=== PATIENT | male | born 1985 | race Caucasian/White ===

== ENCOUNTER 2019-07-10 08:24 | Emergency (ER) | payer BC ==
--- NOTE | 2019-07-10 09:30 | ER Document Report ---
ED GI/ - General Chief Complaint: Testicular Pain Stated Complaint: TESTICULAR PAIN Time Seen by Provider: 07/10/19 09:00 Notes: CHIEF COMPLAINT: Left testicular pain and swelling HPI: 33-year-old male presenting to the emergency department complaining of left testicular pain and swelling that he noticed yesterday. Has not been straining or lifting heavy equipment. Denies dysuria. Denies penile discharge. Patient states that he noticed a lump at the base of the left testicle yesterday. Not had fever. ROS: See HPI - all other systems were reviewed and are otherwise negative GI: no vomiting, no diarrhea, no abdominal pain : no dysuria, + left testicular pain Integumentary: no rash Allergy: no hives MEDICATIONS: I agree with the patient medications as charted by the RN. ALLERGIES: I agree with the allergies as charted by the RN. PAST MEDICAL HISTORY/PAST SURGICAL HISTORY: Reviewed and agree as charted by RN. SOCIAL HISTORY: Reviewed and agree as charted by RN. FAMILY HISTORY: No significant familial comorbid conditions directly related to patient complaint EXAM: Reviewed vital signs as charted by RN. CONSTITUTIONAL: Alert and oriented and responds appropriately to questions. Well-appearing; well-nourished HEAD: Normocephalic; atraumatic EYES: PERRL; Conjunctivae clear, sclerae non-icteric ENT: normal nose; no rhinorrhea; moist mucous membranes NECK: Supple without meningismus CARD: RRR; no murmurs, no clicks, no rubs, no gallops; symmetric distal pulses RESP: Normal chest excursion without splinting or tachypnea; breath sounds clear and equal bilaterally; no wheezes, no rhonchi, no rales, pulse oximetry 98% on room air not hypoxic ABD/GI: Normal bowel sounds; non-distended; soft, non-tender, no rebound, no guarding; no palpable organomegaly or masses. : Circumcised male. Bilateral testicles are descended. There does appear to be swelling and firmness to the epididymal head of the left testicle with mild tenderness on palpation. No other palpable masses. No visible urethral discharge. No visible lesions. No visible or palpable inguinal or scrotal hernias BACK: The back appears normal and is non-tender to palpation, there is no CVA tenderness EXT: Normal ROM in all joints; non-tender to palpation; no cyanosis, no effusions, no edema SKIN: Normal color for age and race; warm; dry; good turgor; no acute lesions noted NEURO: Moves all extremities equally; Motor and sensory function intact PSYCH: The patient's mood and manner are appropriate. Grooming and personal hygiene are appropriate. MDM: 33-year-old male with discomfort and swelling posterior to the left testicle I suspect epididymitis. Will send for ultrasound. Bilateral testicles are descended equally, low suspicion for torsion TRAVEL OUTSIDE OF THE [place] IN LAST 30 DAYS: No - Related Data Allergies/Adverse Reactions: No Known Allergies Allergy (Verified 07/10/19 08:49) Past Medical History - Social History Smoking Status: Never Smoker Chew tobacco use (# tins/day): No Frequency of alcohol use: Social Drug Abuse: None Family History: Reviewed & Not Pertinent Patient has suicidal ideation: No Patient has homicidal ideation: No Physical Exam - Vital signs Vitals: Temp Pulse Resp BP Pulse Ox 98.3 F 75 16 144/94 H 98 07/10/19 08:27 07/10/19 08:27 07/10/19 08:27 07/10/19 08:27 07/10/19 08:27 Course - Re-evaluation Re-evalutation: 07/10/19 11:41 Still awaiting ultrasound report. Nursing has called over to the radiology reading area to facilitate getting the imaging read. I have explained the delay to the patient 07/10/19 12:31 I called and left a message to the transfer center at [facility] for the urology team. I spoke with the patient about his results. He is aware I am awaiting a call from urology 07/10/19 14:29 We have placed several calls to [facility] and the urologist is still in a procedure. Discussed with attending Lynda Serrano [place]. Patient wishes to go home. I discussed this at length with him aware that we do not have a definitive plan although I suspect that it is likely going to be supportive in nature. We will have him take one aspirin daily for 1 week. Warm heat to the scrotum, supportive underwear, follow-up urology. If the urologist does call me back today I have the patient's phone number to call him with any change in the plan and patient is aware of this - Vital Signs Vital signs: Temp Pulse Resp BP Pulse Ox 98.3 F 75 16 144/94 H 98 07/10/19 08:27 07/10/19 08:27 07/10/19 08:27 07/10/19 08:27 07/10/19 08:27 - Laboratory Laboratory results interpreted by me: 07/10/19 09:14 Urine Urobilinogen 2.0 H Discharge - Discharge Clinical Impression: Varicocele present on ultrasound of scrotum, Thrombophlebitis Condition: Stable Disposition: HOME, SELF-CARE Additional Instructions: Take a regular aspirin daily for 1 week. Other pain medications as needed for severe pain. Follow-up closely with urology for further evaluation and treatment call for appointment. No sex for 10 days. No heavy lifting for 10 days. Return to the emergency department if you develop worsening swelling or pain. Warm heat to the scrotum as much as possible. Wear supportive underwear as discussed Prescriptions: Hydrocodone/Acetaminophen [[place] 5-325 mg Tablet] 1 tab PO Q4 PRN #10 tablet PRN Reason: Referrals: URSULA JEONG MD [NO LOCAL MD] - Follow up as needed
[2019-07-10 09:41] LABS: APPEARANCE,URINE SLIGHTLY-CLOUDY; BILIRUBIN,URINE NEGATIVE (NEGATIVE); COLOR,URINE YELLOW; GLUCOSE, URINE NEGATIVE (NEGATIVE); KETONES,URINE NEGATIVE (NEGATIVE); LEUKOCYTE ESTERASE,URINE NEGATIVE (NEGATIVE); NITRITE,URINE NEGATIVE (NEGATIVE); PROTEIN,URINE NEGATIVE (NEGATIVE); URINE SPECIFIC GRAVITY 1.017
--- NOTE | 2019-07-10 11:46 | RADIOLOGY REPORT (SQ) ---
EXAM DESCRIPTION: U/S SCROTUM W/DOPPLER COMPLETED DATE/TIME: 07/10/2019 10:18 am REASON FOR STUDY: left testicular swelling and pain COMPARISON: None. TECHNIQUE: Static and realtime rosado scale imaging of the scrotum and testes. Selected color Doppler and spectral images recorded to document blood flow. LIMITATIONS: None. FINDINGS: RIGHT: TESTICLE: Normal size, 4.1 x 3.3 x 2.1 cm in size. Normal echotexture. Normal blood flow. No mass. EPIDIDYMIS: Normal. 2 mm epididymal cyst. HYDROCELE OR VARICOCELE: No. HERNIA OR EXTRA-TESTICULAR MASS: No. OTHER: No other significant finding. LEFT: TESTICLE: Normal size, 3.8 x 2.8 x 2.1 cm in size. Normal echotexture. Normal blood flow. No mass. EPIDIDYMIS: Normal. HYDROCELE OR VARICOCELE: Large left varicocele. On Valsalva, partial thrombosis of the varicocele ma y be present near the inferior hemiscrotum/inferior epididymis. HERNIA OR EXTRA-TESTICULAR MASS: No. OTHER: No other significant finding. IMPRESSION: No sonographic evidence of testicular torsion or primary testicular mass. Left-sided varicocele, likely with acutely thrombosed vessels present near the inferior hemiscrotum. TECHNICAL DOCUMENTATION: JOB ID: [id number] [email or web address] All Rights Reserved Reading location - IP/workstation name: [email or web address]
[2019-07-10 14:45] VITALS: BP 126/87
== END 2019-07-10 14:45 | disposition home or self-care (01) ==
LOC: ER 08:24
DX: I80.9 Phlebitis and thrombophlebitis of unspecified site (principal); I86.1 Scrotal varices; N50.812 Left testicular pain
CPT/HCPCS: 76870; 81001; 93976; 99284

== ENCOUNTER → 2020-07-19 | Outpatient (CLI) | payer BC ==
[~2020-07-19] MED LIST: COVID-19 VACCINE (PFIZER)/PF 30 MCG/0.3 ML VIAL IM ONE; EPINEPHRINE INJ/PF 1 MG/1 ML AMPULE IM PRN
== END ==
LOC: EMPHEALTH 16:46
PROVIDERS: ATTEND Internal Medicine
DX: Z23 Encounter for immunization (principal)
CPT/HCPCS: 91300